=== PATIENT | male | born 1955 | race Caucasian/White ===

== ENCOUNTER 2016-09-25 19:44 | Inpatient (IN) | payer BC, OTHER ==
[2016-09-25] VITALS (79 sets, daily range): BP systolic 141; BP diastolic 101; PULSE 86; TEMP 97.7; O2SAT 93–100
[~2016-09-25] VITALS: Ht 182.9 cm; Wt 123.6 kg
[~2016-09-25 19:44] MED LIST: 00186-0370-20 IH; ACIPHEX; ALEVE 220MG220 MG PO; ALTACE10 MG PO; ALTACE2.5 MG PO; ASPIRIN E.C. 8181 MG PO; CALAN120 MG PO; CHLORTHALIDONE25 MG PO; DIOVAN 80MG80 MG PO; DIOVAN80 MG PO; FE-TABS325 MG PO; FETZIMA40 PO; FOLIC ACID 40400 MCG PO; HCTZ 25MG TAB25 MG PO; LORTAB 10/500 51 TAB PO; LUNESTA1 MG PO; MOTRIN 200200 MG/TAB PO; NAPROXEN D/R500 MG PO; NEURONTIN300 MG PO; NEURONTIN300 MG/CAP PO; NORCO 325 MG-7.1 TAB PO; PRISTIQ25 MG PO; PRISTIQ50 M1 PO; PROTONIX 40MG T40 MG PO; PROTONIX40 MG PO; PROVIGIL 100MG100 MG PO; PULMICORT0.2 MG/AC1 IH; SEREVENT IH; SINGULAIR 110 MG/TAB PO; SPIRIVA RESPIMAT4 GM IH; VENTOLIN0.09 MG IH; VITAMIN C500 MG PO; VITAMIN D32000 IU PO; VOLTAREN 75 DR75 MG PO; WELLBUTRIN 100100 MG PO; ZOFRAN 4MG T4 MG/TAB PO; ZOLOFT; ZYRTEC 10MG10 MG PO; ZYRTEC10 M1 PO
[2016-09-25 20:30] LABS: INR 1.1 (0.8-3.0); PROTHROMBIN TIME 12.2 SECONDS (9.7-12.8)
[2016-09-25 20:33] LABS: PARTIAL THROMBOPLASTIN TIME 32.2 SECONDS (26.0-37.0)
[2016-09-25 20:34] LABS: BASO # 0.1 (0.0-0.2); BASO % 0.9 % (0.0-2.0); EOS % 0.5 % (0-4.0); GRAN # 5.6 (1.4-6.5); HEMATOCRIT 45.5 % (42.0-52.0); HEMOGLOBIN 15.7 g/dl (13.5-18.0); LYMPH # 1.6 (1.2-3.4); LYMPH % 20.7 % (20.0-51.0); MEAN CELL VOLUME 89 fl (80.0-100.0); MEAN CORPUSCULAR HEMOGLOBIN 31 pg (27.0-31.0); MEAN CORPUSCULAR HGB CONC 35 g/dl (33.0-37.0); MONO # 0.5 (0.1-0.6); MONO % 6.6 % (1.7-9.3); PLATELET COUNT 243 K/mm3 (130-400); RED BLOOD COUNT 5.12 M/mm3 (4.20-5.60); REDCELL DISTRIBUTION WIDTH-CV 13.1 % (11.5-14.5); WHITE BLOOD COUNT 7.9 K/mm3 (4.8-10.8)
[2016-09-25 20:35] LABS: ADJUSTED CALCIUM 9.6 mg/dL (8.4-10.2); ALBUMIN 4.3 gm/dL (3.5-5.0); CALCIUM 9.8 mg/dL (8.4-10.2); CREATININE, serum 1.22 mg/dL (0.66-1.25); POTASSIUM 3.5 mmol/L (3.4-5.0)
[2016-09-25 20:49] LABS: TROPONIN-I 0.044 ng/mL (0.000-0.034)
[2016-09-25] MEDS ORDERED: CALAN80 MG PO (23:00)
[2016-09-26] VITALS (741 sets, daily range): BP systolic 114–136; BP diastolic 63–96; PULSE 59–92; TEMP 97.8–98.6; O2SAT 89–100
[2016-09-27] VITALS (10 sets, daily range): BP systolic 112–142; BP diastolic 63–93; PULSE 63–89; TEMP 98–99
[2016-09-27 11:08] LABS: PROTEIN C ACTIVITY 99 % (70-150); PROTEIN S ACTIVITY 123 % (65-160)
[2016-09-27 11:12] LABS: PH 7 (5-8); SQUAMOUS EPITHELIAL 0-2 /hpf; URINE APPEARANCE Clear; URINE BACTERIA None Seen /hpf; URINE BILIRUBIN Negative (NEGATIVE); URINE BLOOD Negative (NEGATIVE); URINE COLOR Yellow; URINE GLUCOSE Negative (NEGATIVE); URINE KETONE Negative (NEGATIVE); URINE RBC 0-2 /hpf; URINE UROBILINOGEN Negative (NEGATIVE); URINE WBC None Seen /hpf
[2016-09-27] MEDS ORDERED: XARELTO15 MG PO (13:29)
[2016-09-27] MEDS ORDERED: LOPRESSOR 550 MG/TAB PO (13:30)
[2016-09-27] MEDS ORDERED: XARELTO20 MG PO (13:30)
[2016-09-28 14:11] LABS: LUPUS ANTICOAGULANT INR 1.1 (()); LUPUS ANTICOAGULANT PT 12.5 sec (())
[2016-09-28 14:15] LABS: LUPUS ANTICOAGULANT PTT 42 sec (26 - 36)
[2016-09-28 18:54] LABS: .ANTICARDIOLIPIN IGG <9.4 GPL (()); .ANTICARDIOLIPIN IGM <9.4 MPL (())
[2016-10-01 10:13] LABS: FACTOR II ACTIVITY 96 % (72-140); FACTOR V 68 % (50-150)
== END 2016-09-27 15:45 | disposition home or self-care (01) | DRG 175 ==
LOC: COL.ER 19:44 → ICU 19:51 → MEDICAL 09-26 13:50
PROVIDERS: Emergency Medicine; Nurse Practitioner Family
DX: I26.99 Other pulmonary embolism without acute cor pulmonale (principal); I21.4 Non-ST elevation (NSTEMI) myocardial infarction; G47.33 Obstructive sleep apnea (adult) (pediatric); I10 Essential (primary) hypertension; I49.3 Ventricular premature depolarization; K76.0 Fatty (change of) liver, not elsewhere classified; I77.811 Abdominal aortic ectasia; J45.909 Unspecified asthma, uncomplicated; K21.9 Gastro-esophageal reflux disease without esophagitis; F32.9 Major depressive disorder, single episode, unspecified; Z85.060 Personal history of malignant carcinoid tumor of small intestine; Z96.653 Presence of artificial knee joint, bilateral; Z87.891 Personal history of nicotine dependence
CPT/HCPCS: 99223-AI; 99239; A9270-GY; A9284; A9502; J2785; J7030; Q9967

== ENCOUNTER → 2016-10-06 | Outpatient (CLI) | payer BC, OTHER ==
[~2016-10-06] MED LIST changes: +CALAN80 MG PO; +LOPRESSOR 550 MG/TAB PO; +REQUIP0.25 MG PO; +XARELTO15 MG PO; +XARELTO20 MG PO
== END ==
LOC: BHSO 15:11
DX: F33.1 Major depressive disorder, recurrent, moderate (principal)

== ENCOUNTER → 2016-12-13 | Outpatient (CLI) | payer BC, OTHER | LOC: BHSO 16:02 | DX: F33.1 Major depressive disorder, recurrent, moderate (principal) ==

== ENCOUNTER 2017-01-06 04:26 | Emergency (ER) | payer BC, OTHER ==
[~2017-01-06] VITALS: Ht 182.9 cm; Wt 122.7 kg
[~2017-01-06 04:26] MED LIST changes: -REQUIP0.25 MG PO
[2017-01-06 04:38] VITALS: TEMP 97.6
[2017-01-06] MEDS ORDERED: REQUIP0.25 MG PO (04:48)
[2017-01-06 04:49] LABS: BASO # 0.1 (0.0-0.2); BASO % 1.1 % (0.0-2.0); EOS # 0.2 (0.0-0.7); EOS % 1.6 % (0-4.0); GRAN # 6.1 (1.4-6.5); GRAN % 64.1 % (42.2-75.2); HEMATOCRIT 43.5 % (42.0-52.0); HEMOGLOBIN 14.9 g/dl (13.5-18.0); LYMPH # 2.3 (1.2-3.4); LYMPH % 24.2 % (20.0-51.0); MEAN CELL VOLUME 90 fl (80.0-100.0); MEAN CORPUSCULAR HEMOGLOBIN 31 pg (27.0-31.0); MEAN CORPUSCULAR HGB CONC 34 g/dl (33.0-37.0); MONO # 0.8 (0.1-0.6); MONO % 8.5 % (1.7-9.3); PLATELET COUNT 257 K/mm3 (130-400); RED BLOOD COUNT 4.83 M/mm3 (4.20-5.60); REDCELL DISTRIBUTION WIDTH-CV 13.7 % (11.5-14.5); WHITE BLOOD COUNT 9.4 K/mm3 (4.8-10.8)
[2017-01-06 04:51] LABS: INR 1.3 (0.8-3.0); PROTHROMBIN TIME 14.3 SECONDS (9.7-12.8)
[2017-01-06 04:53] LABS: PARTIAL THROMBOPLASTIN TIME 37.7 SECONDS (26.0-37.0)
[2017-01-06 04:56] LABS: ADJUSTED CALCIUM 8.9 mg/dL (8.4-10.2); ALBUMIN 4.2 gm/dL (3.5-5.0); CALCIUM 9.1 mg/dL (8.4-10.2); CREATININE, serum 1.05 mg/dL (0.66-1.25); POTASSIUM 3.5 mmol/L (3.4-5.0); TOTAL PROTEIN 7.7 gm/dL (6.4-8.2)
[2017-01-06 05:07] LABS: TROPONIN-I 0.018 ng/mL (0.000-0.034)
[2017-01-06 09:05] VITALS: BP 114/72; PULSE 52
== END 2017-01-06 09:10 | disposition home or self-care (01) ==
LOC: COL.ER 04:26
PROVIDERS: Emergency Medicine
DX: R07.9 Chest pain, unspecified (principal); I10 Essential (primary) hypertension; I77.810 Thoracic aortic ectasia; Z86.711 Personal history of pulmonary embolism; Z79.01 Long term (current) use of anticoagulants; J45.909 Unspecified asthma, uncomplicated
CPT/HCPCS: J7030; Q9967

== ENCOUNTER → 2017-01-26 | Outpatient (CLI) | payer BC, OTHER ==
[~2017-01-26] MED LIST changes: +REQUIP0.25 MG PO
== END ==
LOC: BHSO 16:06
DX: F33.1 Major depressive disorder, recurrent, moderate (principal)

== ENCOUNTER → 2017-02-09 | Outpatient (CLI) | payer BC, OTHER | LOC: BHSO 09:22 | DX: F33.42 Major depressive disorder, recurrent, in full remission (principal) ==

== ENCOUNTER 2017-04-25 14:55 | Inpatient (IN) | payer BC, OTHER ==
[~2017-04-25] VITALS: Ht 182.9 cm; Wt 119.0 kg
[~2017-04-25 14:55] MED LIST changes: -CALAN80 MG PO; +VERAPAMIL120 MG/TA1 PO; -WELLBUTRIN 100100 MG PO; +WELLBUTRIN XL150 MG PO
[2017-06-07] VITALS (12 sets, daily range): BP systolic 97–137; BP diastolic 60–76; PULSE 56–76; TEMP 98.1–98.8
[2017-06-07] MEDS ORDERED: XARELTO20 MG PO (05:38)
[2017-06-08 00:24] VITALS: BP 153/65; PULSE 53; TEMP 99
[2017-06-08 04:16] VITALS: BP 138/69; PULSE 76; TEMP 98.4
[2017-06-08] MEDS ORDERED: ULTRAM 50MG TAB50 MG PO (05:47)
[2017-06-08] MEDS ORDERED: NORCO 325 MG-7.1 TAB PO (05:47)
[2017-06-08 06:54] LABS: HEMATOCRIT 35.3 % (42.0-52.0); HEMOGLOBIN 11.7 g/dl (13.5-18.0)
[2017-06-08 08:55] VITALS: BP 110/62; PULSE 71; TEMP 98.5
[2017-06-08 15:57] VITALS: BP 102/57; PULSE 78; TEMP 98.3
[2017-06-08 20:00] VITALS: BP 127/72; PULSE 72; TEMP 98.5
[2017-06-09 05:16] VITALS: BP 102/63; PULSE 70; TEMP 98.4
[2017-06-09 05:28] LABS: HEMATOCRIT 32.9 % (42.0-52.0); HEMOGLOBIN 11.3 g/dl (13.5-18.0)
[2017-06-09 09:04] VITALS: BP 118/58; PULSE 76; TEMP 97.4
[2017-06-09 13:06] VITALS: BP 121/68; PULSE 63
[2017-06-09 13:35] VITALS: TEMP 98.5
== END 2017-06-09 15:51 | disposition home or self-care (01) | DRG 470 ==
LOC: JCC 06-07 05:05
PROVIDERS: Orthopaedic Surgery; Physician Assistant
PROC: 0SRC0J9 Replacement of Right Knee Joint with Synthetic Substitute, Cemented, Open Approach (ICD-10-PCS; principal; 2017-06-07 07:30)
DX: M17.11 Unilateral primary osteoarthritis, right knee (principal); I10 Essential (primary) hypertension; J45.909 Unspecified asthma, uncomplicated
CPT/HCPCS: A4315; A9284; C1713; C1776; J0690; J1100; J1885; J2250; J2270; J2300; J2405; J2704; J3010; J7120

== ENCOUNTER → 2017-08-14 | Outpatient (CLI) | payer BC, OTHER ==
[~2017-08-14] MED LIST changes: +ULTRAM 50MG TAB50 MG PO
== END ==
LOC: BHSO 10:04
DX: F33.42 Major depressive disorder, recurrent, in full remission (principal)
CPT/HCPCS: G0463

== ENCOUNTER → 2017-09-27 | Outpatient (CLI) | payer BC, OTHER | LOC: BHSO 16:07 | DX: F33.0 Major depressive disorder, recurrent, mild (principal) ==

== ENCOUNTER → 2017-10-19 | Outpatient (CLI) | payer BC, OTHER | LOC: BHSO 16:02 | DX: F33.1 Major depressive disorder, recurrent, moderate (principal) ==

== ENCOUNTER → 2018-02-09 | Outpatient (CLI) | payer BC, OTHER | LOC: BHSO 13:03 | DX: F33.42 Major depressive disorder, recurrent, in full remission (principal) | CPT/HCPCS: G0463 ==

== ENCOUNTER → 2018-09-10 | Outpatient (CLI) | payer BC, OTHER | LOC: BHSO 14:53 | DX: F33.42 Major depressive disorder, recurrent, in full remission (principal) | CPT/HCPCS: G0463 ==

== ENCOUNTER → 2020-03-11 | Outpatient (CLI) | payer MEDICARE, BC ==
[~2020-03-11] MED LIST changes: +COZAAR 50MG50 MG/TAB PO; +CYMBALTA 60MG60 MG PO; +ISOPTIN SR120 MG PO; +NEXIUM 20MG20 MG PO; +TRICOR 48MG48 MG PO
== END ==
LOC: COL.RAD 13:47
DX: Z01.812 Encounter for preprocedural laboratory examination (principal); I77.810 Thoracic aortic ectasia
CPT/HCPCS: Q9967

== ENCOUNTER 2021-03-20 15:20 | Emergency (ER) | payer MEDICARE, BC ==
[~2021-03-20] VITALS: Ht 182.9 cm; Wt 122.7 kg
[2021-03-20 15:31] VITALS: TEMP 97.8
[2021-03-20 17:55] VITALS: BP 131/75; PULSE 64
== END 2021-03-20 17:56 | disposition home or self-care (01) ==
LOC: COL.ER 15:20
DX: Z20.3 Contact with and (suspected) exposure to rabies (principal); I10 Essential (primary) hypertension; J45.909 Unspecified asthma, uncomplicated; Z87.891 Personal history of nicotine dependence; Z79.899 Other long term (current) drug therapy

== ENCOUNTER → 2022-10-26 | Outpatient (CLI) | payer MEDICARE, BC | LOC: COL.RAD 10-20 14:30 | DX: I71.21 Aneurysm of the ascending aorta, without rupture (principal); N20.0 Calculus of kidney | CPT/HCPCS: Q9967 ==

== ENCOUNTER 2023-11-30 23:49 | Emergency (ER) | payer MEDICARE, BC ==
[~2023-11-30] VITALS: Ht 182.9 cm; Wt 115.9 kg
[2023-11-30 23:53] VITALS: TEMP 98.5
[2023-12-01] MEDS ORDERED: Morphine 4 MG/ML VIAL IV ONE (00:30)
[2023-12-01] MEDS ORDERED: Ondansetron 4 MG/2 ML VIAL IV ONE (00:30)
[2023-12-01 00:39] LABS: BASO # 0.1 K/mm3 (0.0-0.2); BASO % 0.7 % (0.0-2.0); EOS # 0.2 K/mm3 (0.0-0.7); EOS % 1.6 % (0.0-4.0); GRAN # 5.9 K/mm3 (1.4-6.5); GRAN % 59.1 % (42.2-75.2); HEMATOCRIT 44.1 % (42.0-52.0); HEMOGLOBIN 14.7 g/dl (13.5-18.0); LYMPH # 2.8 K/mm3 (1.2-3.4); LYMPH % 27.6 % (20.0-51.0); MEAN CELL VOLUME 95 fl (80.0-100.0); MEAN CORPUSCULAR HEMOGLOBIN 32 pg (27-31); MEAN CORPUSCULAR HGB CONC 33 g/dl (33.0-37.0); MEAN PLATELET VOLUME 9.4 fl (7.4-10.4); MONO # 1.1 K/mm3 (0.1-0.6); MONO % 10.8 % (1.7-9.3); PLATELET COUNT 274 K/mm3 (130-400); RED BLOOD COUNT 4.66 M/mm3 (4.20-5.60); REDCELL DISTRIBUTION WIDTH-CV 12.7 % (11.5-14.5)
[2023-12-01 00:49] LABS: ALANINE AMINOTRANSFERASE 15 U/L (0-55); ALBUMIN 3.7 g/dL (3.4-4.8); ALKALINE PHOSPHATASE 70 U/L (40-150); ANION GAP 13 mmol/L (7-16); AST,SGOT 19 U/L (5-34); BILIRUBIN,TOTAL 0.4 mg/dL (0.2-1.2); BLOOD UREA NITROGEN 9 mg/dL (8-26); CALCIUM 9.9 mg/dL (8.4-10.2); CHLORIDE 99 mEq/L (98-107); CREATININE, serum 1.25 mg/dL (0.72-1.25); GLUCOSE 78 mg/dL (70-99); POTASSIUM 3.9 mEq/L (3.5-4.5); SODIUM 137 mEq/L (136-145); TOTAL PROTEIN 8.1 g/dl (6.2-8.1)
[2023-12-01 01:02] LABS: TROPONIN-I < 0.010 ng/mL (0.00-0.033)
[2023-12-01] MEDS ORDERED: cefTRIAXone 1 G in Water For Injection,Sterile 10 ML IV ONE (01:30)
[2023-12-01] MEDS ORDERED: Iohexol 350 - 100 ML VIAL IV ONE (01:32)
[2023-12-01] MEDS ORDERED: NS 50 ML IV ONE (01:33)
[2023-12-01] MEDS ORDERED: ULTRAM 50MG TAB50 MG PO (02:11)
[2023-12-01] MEDS ORDERED: AMOXICILLIN 8751 TAB PO (02:11)
[2023-12-01] MEDS ORDERED: methylPREDNISolone Sod Succ 125 MG/2 ML VIAL IV ONE (02:15)
[2023-12-01] MEDS ORDERED: Ketorolac 15 MG/ML VIAL IV ONE (02:15)
[2023-12-01 02:27] VITALS: BP 174/103; PULSE 81
== END 2023-12-01 02:27 | disposition home or self-care (01) ==
LOC: COL.ER 23:49
PROVIDERS: Personal Emergency Response Attendant
DX: J18.9 Pneumonia, unspecified organism (principal); I25.2 Old myocardial infarction; Z79.01 Long term (current) use of anticoagulants; Z88.1 Allergy status to other antibiotic agents; Z86.79 Personal history of other diseases of the circulatory system
CPT/HCPCS: J0696; J1885; J2270; J2405; J2919; Q9967